=== PATIENT | female | born 1980 | race Caucasian/White ===

== ENCOUNTER 2019-07-09 10:06 | Emergency (ER) | payer MEDICAID ==
[~2019-07-09] VITALS: Ht 167.6 cm; Wt 102.1 kg
[2019-07-09 10:36] VITALS: BP 131/78
== END 2019-07-09 11:10 | disposition home or self-care (01) ==
LOC: ER 10:06
DX: M25.572 Pain in left ankle and joints of left foot (principal)
CPT/HCPCS: 73610